=== PATIENT | female | born 1985 | race African-American/Black ===

== ENCOUNTER 2022-01-23 22:51 | Emergency (ER) | payer SELFPAY ==
[~2022-01-23] VITALS: Ht 162.6 cm; Wt 100.0 kg
[2022-01-24 02:01] LABS: BASOPHILS % 0.2 % (0.0-2.0); HEMATOCRIT. 37.7 % (36.0-48.0); HEMOGLOBIN. 12.1 g/dL (12.0-16.0); LYMPHOCYTES % 17.5 % (20.0-50.0); MEAN CORPUSCULAR HEMOGLOBIN 27.5 pg (28.0-32.0); MEAN CORPUSCULAR VOLUME 85.5 fL (81.0-99.0); MEAN PLATELET VOLUME 8.5 fl (7.4-10.4); MONOCYTES % 8.1 % (2.0-8.0); NEUTROPHILS % 74.2 % (40.0-76.0); PLATELET 337 x1000/uL (130-400); RED BLOOD CELL COUNT 4.41 mill/uL (4.2-5.4); RED CELL DISTRIBUTION WIDTH 14.7 % (11.6-14.6)
[2022-01-24 02:14] LABS: CHLORIDE 104 mEq/L (98-107)
[2022-01-24 02:30] LABS: ETHANOL BLOOD < 10 mg/dL
[2022-01-24] MEDS ORDERED: POTASSIUM CHLORIDE 20MEQ TABLET SR PO ONE (03:00)
[2022-01-24] MEDS ORDERED: POTASSIUM CHLORIDE INJ 40 MEQ in DEXT 5% WATER 250 ML IV ONE (03:00)
[2022-01-24] MEDS: KCL 20MEQ/100ML PREMIX 100 ML IV SCH ×2 (03:27→06:20)
[2022-01-24 13:24] LABS: CHLORIDE 109 mEq/L (98-107)
[2022-01-24] MEDS ORDERED: CALCIUM GLUCONATE 100MG/ML 10ML VIAL IV ONE (13:45)
[2022-01-24 14:05] VITALS: BP 129/69
[2022-01-24 14:16] LABS: CHLORIDE 117 mEq/L (98-107)
== END 2022-01-24 17:49 | disposition left against medical advice (07) ==
LOC: ER 23:22
DX: F23 Brief psychotic disorder (principal); F91.8 Other conduct disorders; R41.82 Altered mental status, unspecified; E87.6 Hypokalemia; Z78.1 Physical restraint status
CPT/HCPCS: 36415; 80048; 80053; 80307; 80320; 80329; 81025; 82962; 84443; 85025; 93005; 96361; 96365; 99285; J0610; J3480; Z7610; G0480